=== PATIENT | female | born 1930 | race African-American/Black ===

== ENCOUNTER 2018-06-02 19:30 | Inpatient (IN) | payer SELFPAY ==
[2018-06-02 19:39] VITALS: BMI 25.7
--- NOTE | 2018-06-02 20:04 | PDOC ---
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 Past History - Past Medical History Allergies/Adverse Reactions: Allergies Allergy/AdvReac Type Severity Reaction Status Date / Time Penicillins Allergy Severe Swelling Verified 06/02/18 19:40 aspirin Allergy Mild Hives Verified 06/02/18 19:40 COPD: No HTN: Yes - Suicide/Smoking/Psychosocial Hx Smoking History: Never smoked Have you smoked in the past 12 months: No Information on smoking cessation initiated: No Hx Alcohol Use: No Drug/Substance Use Hx: No Substance Use Type: None Review of Systems - Review of Systems Able to Perform ROS?: Yes Constitutional: Yes: Chills, Fever, Malaise, Weakness. No: Unexplained wgt Loss HEENTM: No: Nose Congestion, Throat Pain Respiratory: No: Cough, Shortness of Breath Cardiac (ROS): No: Chest Pain, Palpitations ABD/GI: No: Constipated, Diarrhea, Nausea, Vomiting : No: Burning, Dysuria Musculoskeletal: No: Back Pain, Neck Pain Integumentary: No: Bruising, Rash Neurological: No: Headache, Numbness, Tingling, Weakness, Dizziness Endocrine: No: Unexplained Weight Gain, Unexplained Weight Loss *Physical Exam - Vital Signs Last Vital Signs Temp Pulse Resp BP Pulse Ox 101.3 F H 88 22 123/112 100 06/02/18 19:36 06/02/18 19:36 06/02/18 19:36 06/02/18 19:36 06/02/18 19:36 - Physical Exam General Appearance: Yes: Nourished, Appropriately Dressed, Other (pleasant elderly [place]-speaking female who appears comfortable, occasional wet cough, no overt respiratory or other distress, answering questions appropriately, accompanied by family at bedside). No: Apparent Distress HEENT: positive: EOMI, RENETTA, Normal Voice, Hearing Grossly Normal. negative: Scleral Icterus (R), Scleral Icterus (L), Nasal Congestion Neck: positive: Trachea midline, Supple. negative: Tender, Rigid Respiratory/Chest: positive: Crackles. negative: Respiratory Distress, Rhonchi , Stridor, Wheezing Cardiovascular: positive: Regular Rhythm, Regular Rate, Murmur (2/6 systolic). negative: Edema Gastrointestinal/Abdominal: positive: Normal Bowel Sounds, Soft. negative: Tender, Organomegaly, Pulsatile Mass, Guarding Musculoskeletal: positive: Normal Inspection. negative: Decreased Range of Motion, Vertebral Tenderness Extremity: positive: Normal Capillary Refill, Normal Inspection, Normal Range of Motion. negative: Tender, Cyanosis Integumentary: positive: Normal Color, Dry, Warm. 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 negative: Confused, Disoriented Heart Score/ECG Review #1 06/02/18 22:44 NSR rate 73 with normal axis and intervals and no ischemic changes ED Treatment Course - LABORATORY CBC & Chemistry Diagram: 06/02/18 21:00 06/02/18 21:00 Medical Decision Making - Medical Decision Making 06/02/18 20:24 Pt p/w SOB, cough, chest discomfort, and fever. Initial Vital Signs Temp Pulse Resp BP Pulse Ox 101.3 F H 88 22 123/112 100 06/02/18 19:36 06/02/18 19:36 06/02/18 19:36 06/02/18 19:36 06/02/18 19:36 Exam: As noted in Physical Exam section. DDX IBNLT: CHF, PNA, bronchitis, COPD, asthma, other lung disease, viral URI ( e.g. influenza), laryngitis, tracheitis, etc. W/U ordered: Labs as noted below EKG CXR TX ordered: [facility] EKG: Reviewed; results as noted in ECG Review section. CXR: Nothing acute Laboratory Tests 06/02/18 06/02/18 06/02/18 20:55 21:00 21:00 WBC 8.6 RBC 4.04 Hgb 12.8 Hct 37.6 MCV 93.2 MCH 31.6 MCHC 33.9 RDW 13.5 Plt Count 209 MPV 8.3 Absolute Neuts (auto) 6.9 Neutrophils % 80.6 Lymphocytes % 7.4 L Monocytes % 11.1 H Eosinophils % 0.4 Basophils % 0.5 Nucleated RBC % 0 PT with INR 12.10 INR 1.07 PTT (Actin FS) 32.0 VBG pH POC VBG pCO2 POC VBG pO2 Mixed VBG HCO3 Sodium Potassium Chloride Carbon Dioxide Anion Gap BUN Creatinine Creat Clearance w eGFR Random Glucose Lactic Acid Calcium Total Bilirubin AST ALT Alkaline Phosphatase Troponin I B-Natriuretic Peptide 222.70 Total Protein Albumin Urine Color Urine Appearance Urine pH Ur Specific [place] Urine Protein Urine Glucose (UA) Urine Ketones Urine Blood Urine Nitrite Urine Bilirubin Urine Urobilinogen Ur Leukocyte Esterase Urine WBC (Auto) Urine RBC (Auto) Ur Epithelial Cells Urine Bacteria 06/02/18 06/02/18 06/02/18 21:00 21:00 21:00 WBC RBC Hgb Hct MCV MCH MCHC RDW Plt Count MPV Absolute Neuts (auto) Neutrophils % Lymphocytes % Monocytes % Eosinophils % Basophils % Nucleated RBC % PT with INR INR PTT (Actin FS) VBG pH 7.45 H POC VBG pCO2 43.0 POC VBG pO2 36.5 Mixed VBG HCO3 29.4 H Sodium 137 Potassium 3.9 Chloride 98 Carbon Dioxide 29 Anion Gap 10 BUN 23 H Creatinine 1.2 H Creat Clearance w eGFR 42.70 Random Glucose 105 Lactic Acid 0.9 Calcium 8.6 Total Bilirubin 1.8 H AST 21 ALT 20 Alkaline Phosphatase 113 Troponin I B-Natriuretic Peptide Total Protein 7.7 Albumin 3.6 Urine Color Urine Appearance Urine pH Ur Specific [place] Urine Protein Urine Glucose (UA) Urine Ketones Urine Blood Urine Nitrite Urine Bilirubin Urine Urobilinogen Ur Leukocyte Esterase Urine WBC (Auto) Urine RBC (Auto) Ur Epithelial Cells Urine Bacteria 06/02/18 06/02/18 21:00 21:30 WBC RBC Hgb Hct MCV MCH MCHC RDW Plt Count MPV Absolute Neuts (auto) Neutrophils % Lymphocytes % Monocytes % Eosinophils % Basophils % Nucleated RBC % PT with INR INR PTT (Actin FS) VBG pH POC VBG pCO2 POC VBG pO2 Mixed VBG HCO3 Sodium Potassium Chloride Carbon Dioxide Anion Gap BUN Creatinine Creat Clearance w eGFR Random Glucose Lactic Acid Calcium Total Bilirubin AST ALT Alkaline Phosphatase Troponin I < 0.02 B-Natriuretic Peptide Total Protein Albumin Urine Color Straw Urine Appearance Clear Urine pH 7.0 Ur Specific [place] 1.005 Urine Protein Negative Urine Glucose (UA) Negative Urine Ketones Negative Urine Blood 1+ H Urine Nitrite Negative Urine Bilirubin Negative Urine Urobilinogen Negative Ur Leukocyte Esterase 3+ H Urine WBC (Auto) 87 Urine RBC (Auto) 6 Ur Epithelial Cells Rare Urine Bacteria Few Patient has UTI, clinically has PNA even though this is not reflected with evidence on CXR. Reassessment: Patient continues to have frequent wet cough. Generally appears very well otherwise. Repeat vitals wnl. Levaquin 750 mg IVPB ordered as patient has severe PCN allergy with anaphylaxis in the past. CURB-65 score: 2, indicating 9.2% mortality. PNA Severity Index: 125, indicating 9.2% mortality. ADMIT CURB-65 and PSI suggest Pt should be admitted for inpatient management. The Pt is unsafe for discharge at this time. They require further hospital observation, workup, and treatment. Microblog sent to [facility] for admission. Spoke with [facility] (Lorenzo Caldera), in agreement Pt to be admitted to Med/Surg Obs. Decision to Admit order placed to [facility] covering attending Dr. Hopper. 06/02/18 22:44 *DC/Admit/Observation/Transfer Diagnosis at time of Disposition: Generalized weakness Pneumonia Qualifiers: Pneumonia type: due to unspecified organism Laterality: unspecified laterality Lung location: unspecified part of lung Qualified Code(s): J18.9 - Pneumonia, unspecified organism UTI (urinary tract infection) Qualifiers: Urinary tract infection type: acute cystitis Hematuria presence: without hematuria Qualified Code(s): N30.00 - Acute cystitis without hematuria - Discharge Dispostion Condition at time of disposition: Guarded Decision to Admit order: Yes - Referrals - Patient Instructions - Post Discharge Activity
[2018-06-02] MEDS ORDERED: ACETAMINOPHEN 1000 MG/100 ML VIAL (NON FORMULARY) IVPB ONE (20:14)
--- NOTE | 2018-06-02 20:14 | PDOC ---
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 As per patient, she has been experiencing fever, chills, orthopnea, and a productive cough with white phlegm. She reports associated weakness and malaise. She reports 3 days of urinary frequency, and foul smelling urine without dysuria. She reports intermittent diarrhea and constipation. Allergies: Aspirin and penicillins. Social history: Nonsmoker. Denies EtOH use and recreational drug use. - Physicial Exam PE: 06/02/18 23:19 GENERAL: Afebrile. Awake, alert, and fully oriented, in no acute distress HEAD: No signs of trauma EYES: PERRLA, EOMI, sclera anicteric, conjunctiva clear ENT: Auricles normal inspection, hearing grossly normal, nares patent, oropharynx clear without exudates. Moist mucosa NECK: Normal ROM, supple, no lymphadenopathy, JVD, or masses LUNGS: Breath sounds equal, clear to auscultation bilaterally. No wheezes, and no crackles HEART: Regular rate and rhythm, normal S1 and S2, no murmurs, rubs or gallops ABDOMEN: Soft, nontender, normoactive bowel sounds. No guarding, no rebound. No masses EXTREMITIES: Normal range of motion, no edema. No clubbing or cyanosis. No cords, erythema, or tenderness NEUROLOGICAL: Cranial nerves II through XII grossly intact. Normal speech, normal gait SKIN: Warm, Dry, normal turgor, no rashes or lesions noted. <Melanie Engel - Last Filed: 06/02/18 23:18> - Medical Decision Making 06/08/18 01:55 Pt admitted <Isamar Hartmann - Last Filed: 06/08/18 01:55> Heart Score/ECG Review #1 06/02/18 22:54 EKG performed at: 02 June 2018 at 22:41:11 Vent Rate 73 bpm UT interval 198 ms QRS duration 112 ms QT/QTc 396/436 ms P-R-T axes 62 -20 52 No T wave inversions, no ST elevations <Melanie Engel - Last Filed: 06/02/18 23:18> Attestations - Attestations 06/02/18 21:22 Documentation prepared by Melanie Engel, acting as medical equipment sales for Isamar Hartmann MD. <Melanie Engel - Last Filed: 06/02/18 23:18>
[2018-06-02 21:08] LABS: BASO % 0.5 % (0-2.0); EOS % 0.4 % (0-4.5); HEMATOCRIT 37.6 % (32.4-45.2); HEMOGLOBIN 12.8 GM/dL (10.7-15.3); LYMPH % 7.4 % (8-40); MCH 31.6 pg (25.7-33.7); MCHC 33.9 g/dl (32.0-36.0); MEAN CELL VOLUME 93.2 fl (80-96); MEAN PLT VOLUME 8.3 fl (7.5-11.1); MONO % 11.1 % (3.8-10.2); NEUT % 80.6 % (42.8-82.8); PLATELET COUNT 209 K/MM3 (134-434); RBC 4.04 M/mm3 (3.60-5.2); RDW 13.5 % (11.6-15.6); WHITE BLOOD COUNT 8.6 K/mm3 (4.0-10.0)
[2018-06-02 21:12] LABS: VENOUS PH 7.45 (7.32-7.42); VENOUS PO2 36.5 mmHg (28-48)
[2018-06-02 21:33] LABS: ALBUMIN 3.6 g/dl (3.4-5.0); ALK PHOS 113 U/L (45-117); ANION GAP 10 (8-16); BILIRUBIN,TOTAL 1.8 mg/dL (0.2-1.0); BLOOD UREA NITROGEN 23 mg/dL (7-18); CALCIUM 8.6 mg/dL (8.5-10.1); CHLORIDE 98 mmol/L (98-107); CO2 29 mmol/L (21-32); CREATININE 1.2 mg/dL (0.55-1.02); GLUCOSE,RANDOM 105 mg/dL (74-106); POTASSIUM 3.9 mmol/L (3.5-5.1); SGOT/AST 21 U/L (15-37); SGPT/ALT 20 U/L (12-78); SODIUM 137 mmol/L (136-145); TOT PROT 7.7 g/dl (6.4-8.2)
[2018-06-02 21:35] LABS: INR 1.07 (0.82-1.09); PROTHROMBIN TIME (PATIENT) 12.1 SEC (9.7-13.0)
[2018-06-02 21:40] LABS: URINE APPEARANCE CLEAR; URINE BILIRUBIN NEGATIVE (<2.0 mg/dL); URINE COLOR STRAW; URINE GLUCOSE (UA) NEGATIVE (NEGATIVE); URINE KETONE NEGATIVE (NEGATIVE); URINE NITRITE NEGATIVE (NEGATIVE); URINE PROTEIN NEGATIVE (NEGATIVE); URINE UROBILINOGEN NEGATIVE mg/dL (0.2-1.0)
[2018-06-02 21:57] LABS: URINE LEUK ESTERASE 3+ (NEGATIVE)
[2018-06-02 21:59] LABS: EPI CELLS RARE /HPF (FEW); URINE BACTERIA FEW /hpf (NONE SEEN)
[2018-06-02] MEDS ORDERED: DOXYCYCLINE INJECTION 100 MG in DEXTROSE 5%-WATER - 100 ML IVPB ONE (22:10)
[2018-06-02] MEDS ORDERED: DOXYCYCLINE HYCLATE 100 MG VIAL ONE (23:14)
--- NOTE | 2018-06-03 00:11 | PN ---
Teaching Attending Note Name of Resident: Naun Hernandez ATTENDING PHYSICIAN STATEMENT I saw and evaluated the patient. I reviewed the resident's note and discussed the case with the resident. I agree with the resident's findings and plan as documented. 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 She presents to the ER complaints of fever, chills , orthopnea, and a productive cough with white phlegm for 2 days. She reports associated weakness and malaise. She reports 3 days of urinary frequency, and foul smelling urine without dysuria. She reports intermittent diarrhea and constipation. OBJECTIVE: Alert and in no acute distress Vital Signs Period Temp Pulse Resp BP Sys/Valdovinos Pulse Ox Last 24 Hr 101.3 F 88 22 123/112 100 HEENT: No Jaundice, eye redness or discharge, PERRLA, EOMI. Normocephalic, atraumatic. External ears are normal and hearing is grossly intact. No nasal discharge. Neck: Supple, nontender. No palpable adenopathy or thyromegaly. No JVD Chest: Good effort. Clear to auscultation and percussion. Heart: Regular. No S3, rub or murmur Abdomen: Not distended, soft, nontender and no HSM. No rebound or guarding. Normoactive bowel sounds. Ext: Peripheral pulses intact. No leg edema. Skin: Warm and dry. No petechiae, rash or ecchymosis. Neuro: Alert. Oriented x3. CN 2-12 grossly intact. Sensation grossly intact in all four extremities and DTR are symmetric. Abnormal Lab Results 06/02/18 06/02/18 06/02/18 21:00 21:00 21:00 Lymphocytes % 7.4 L Monocytes % 11.1 H VBG pH 7.45 H Mixed VBG HCO3 29.4 H BUN 23 H Creatinine 1.2 H Total Bilirubin 1.8 H Urine Blood Ur Leukocyte Esterase 06/02/18 21:30 Lymphocytes % Monocytes % VBG pH Mixed VBG HCO3 BUN Creatinine Total Bilirubin Urine Blood 1+ H Ur Leukocyte Esterase 3+ H ASSESSMENT AND PLAN: 1. UTI - Allergic to penicillin. Will treat with Levofloxacin 250 mg IV q 24 hours. Patient has significant pulmonary symptoms but no significant infiltrate on CXR (RLL and RML?). Will get a chest CT scan. May have atypical pneumonia which will also be covered by levofloxacin. Will trend unexplained elevated bilirubin and repeat LFTs tomorrow. 2. AIDAN - Dehydration due to poor intake is likely culprit. Will hydrate her gently with IV fluids and encourage liberal oral fluids. Trend BUN/Cr and avoid nephrotoxic agents such as NSAIDS, aminoglycosides, contrast dyes and certain alternative medicine products. 3. DVT prophylaxis - Heparin 5000u sq tid. 4. Advance directives - Full code
[2018-06-03] MEDS ORDERED: ACETAMINOPHEN 325 MG TABLET (FP) PO PRN (02:15)
[2018-06-03] MEDS: SODIUM CHLORIDE 1,000 ML IV SCH ×2 (02:52→20:03)
[2018-06-03] MEDS: HEPARIN NA (PORCINE) 5,000 UNITS/ML 1ML VIAL SQ SCH ×3 (02:52→18:30)
[2018-06-03] MEDS ORDERED: HEPARIN NA (PORCINE) 5,000 UNITS/ML 1ML VIAL ONE (03:09)
[2018-06-03 06:45] LABS: BASO % 0.2 % (0-2.0); EOS % 0.6 % (0-4.5); HEMATOCRIT 35.6 % (32.4-45.2); HEMOGLOBIN 12.2 GM/dL (10.7-15.3); MCHC 34.2 g/dl (32.0-36.0); MEAN CELL VOLUME 93.4 fl (80-96); MEAN PLT VOLUME 8.3 fl (7.5-11.1); MONO % 14.5 % (3.8-10.2); NEUT % 74.7 % (42.8-82.8); PLATELET COUNT 201 K/MM3 (134-434); RBC 3.81 M/mm3 (3.60-5.2); RDW 13.7 % (11.6-15.6); WHITE BLOOD COUNT 8.4 K/mm3 (4.0-10.0)
[2018-06-03 06:55] LABS: INR 1.22 (0.82-1.09); PROTHROMBIN TIME (PATIENT) 13.8 SEC (9.7-13.0)
[2018-06-03 06:58] LABS: ACTIVATED PTT 30.9 SECONDS (25.2-36.5)
[2018-06-03 07:05] LABS: ALBUMIN 3.1 g/dl (3.4-5.0); ANION GAP 5 (8-16); BLOOD UREA NITROGEN 19 mg/dL (7-18); CALCIUM 8.7 mg/dL (8.5-10.1); CHLORIDE 100 mmol/L (98-107); CO2 32 mmol/L (21-32); CREATININE 1.1 mg/dL (0.55-1.02); GLUCOSE,RANDOM 90 mg/dL (74-106); POTASSIUM 3.6 mmol/L (3.5-5.1); SGOT/AST 20 U/L (15-37); SGPT/ALT 19 U/L (12-78); SODIUM 137 mmol/L (136-145)
[2018-06-03 07:08] LABS: ALK PHOS 109 U/L (45-117); BILIRUBIN,TOTAL 1.7 mg/dL (0.2-1.0)
--- NOTE | 2018-06-03 08:03 | HP ---
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 She reports 3 days of urinary frequency, and foul smelling urine without dysuria. Pt is visitiing family in the [facility] for the month from [facility]. Going back next week Denies CP, abd pain, n/v/d, hematuria, dysuria, stool in blood, recent sick contacts ER course was notable for: (1)levaquin, doxy, Tylenol (2) (3) Recent Travel: PAST MEDICAL HISTORY: PAST SURGICAL HISTORY: appendectomy cholec fibroid Social History: Smoking: denies Alcohol:denies Drugs: denies Family History: mom HTN Allergies Penicillins Allergy (Severe, Verified 06/03/18 03:24) Swelling aspirin Allergy (Mild, Verified 06/03/18 03:24) Hives HOME MEDICATIONS: Amlodipine 10mg qd HCTZ 25mg qd clonixinato 10-125 (icelandic) needs to be confirmed diprofolina 500? 250? (icelandic)needs to be confirmed Home Medications Medication Instructions Recorded NK [No Known Home Medication] 06/03/18 REVIEW OF SYSTEMS reviewed in HPI PHYSICAL EXAMINATION Vital Signs - 24 hr 06/02/18 06/03/18 19:36 03:27 Temperature 101.3 F H 98.5 F Pulse Rate 88 70 Pulse Rate [ 70 Left Radial] Respiratory 22 16 Rate Blood Pressure 123/112 Blood Pressure 121/68 [Right Arm] O2 Sat by Pulse 100 95 Oximetry (%) GENERAL: Awake, alert, and fully oriented, in no acute distress. HEAD: Normal with no signs of trauma. EYES: Pupils equal, round and reactive to light, extraocular movements intact, sclera anicteric, conjunctiva clear. No lid lag. EARS, NOSE, THROAT: Ears normal, nares patent, oropharynx clear without exudates. Moist mucous membranes. NECK: Normal range of motion, supple without lymphadenopathy, JVD, or masses. LUNGS: B/L crackles HEART: Regular rate and rhythm, normal S1 and S2 without murmur, rub or gallop. ABDOMEN: Soft, nontender, not distended, normoactive bowel sounds, no guarding, no rebound, no masses. No hepatomegaly or splenomegaly. MUSCULOSKELETAL: Normal range of motion at all joints. No bony deformities or tenderness. No CVA tenderness. UPPER EXTREMITIES: 2+ pulses, warm, well-perfused. No cyanosis. No clubbing. No peripheral edema. LOWER EXTREMITIES: 2+ pulses, warm, well-perfused. No calf tenderness. No peripheral edema. NEUROLOGICAL: Cranial nerves II-XII intact. Normal speech. SKIN: Warm, dry, normal turgor, no rashes or lesions noted, normal capillary refill. Laboratory Results - last 24 hr 06/02/18 06/02/18 06/02/18 20:55 21:00 21:00 WBC 8.6 RBC 4.04 Hgb 12.8 Hct 37.6 MCV 93.2 MCH 31.6 MCHC 33.9 RDW 13.5 Plt Count 209 MPV 8.3 Absolute Neuts (auto) 6.9 Neutrophils % 80.6 Lymphocytes % 7.4 L Monocytes % 11.1 H Eosinophils % 0.4 Basophils % 0.5 Nucleated RBC % 0 PT with INR 12.10 INR 1.07 PTT (Actin FS) 32.0 VBG pH POC VBG pCO2 POC VBG pO2 Mixed VBG HCO3 Sodium Potassium Chloride Carbon Dioxide Anion Gap BUN Creatinine Creat Clearance w eGFR Random Glucose Lactic Acid Calcium Total Bilirubin AST ALT Alkaline Phosphatase Troponin I B-Natriuretic Peptide 222.70 Total Protein Albumin Urine Color Urine Appearance Urine pH Ur Specific [place] Urine Protein Urine Glucose (UA) Urine Ketones Urine Blood Urine Nitrite Urine Bilirubin Urine Urobilinogen Ur Leukocyte Esterase Urine WBC (Auto) Urine RBC (Auto) Ur Epithelial Cells Urine Bacteria 06/02/18 06/02/18 06/02/18 21:00 21:00 21:00 WBC RBC Hgb Hct MCV MCH MCHC RDW Plt Count MPV Absolute Neuts (auto) Neutrophils % Lymphocytes % Monocytes % Eosinophils % Basophils % Nucleated RBC % PT with INR INR PTT (Actin FS) VBG pH 7.45 H POC VBG pCO2 43.0 POC VBG pO2 36.5 Mixed VBG HCO3 29.4 H Sodium 137 Potassium 3.9 Chloride 98 Carbon Dioxide 29 Anion Gap 10 BUN 23 H Creatinine 1.2 H Creat Clearance w eGFR 42.70 Random Glucose 105 Lactic Acid 0.9 Calcium 8.6 Total Bilirubin 1.8 H AST 21 ALT 20 Alkaline Phosphatase 113 Troponin I B-Natriuretic Peptide Total Protein 7.7 Albumin 3.6 Urine Color Urine Appearance Urine pH Ur Specific [place] Urine Protein Urine Glucose (UA) Urine Ketones Urine Blood Urine Nitrite Urine Bilirubin Urine Urobilinogen Ur Leukocyte Esterase Urine WBC (Auto) Urine RBC (Auto) Ur Epithelial Cells Urine Bacteria 06/02/18 06/02/18 06/03/18 21:00 21:30 06:21 WBC 8.4 RBC 3.81 Hgb 12.2 Hct 35.6 MCV 93.4 MCH 32.0 MCHC 34.2 RDW 13.7 Plt Count 201 MPV 8.3 Absolute Neuts (auto) 6.2 Neutrophils % 74.7 Lymphocytes % 10.0 D Monocytes % 14.5 H Eosinophils % 0.6 Basophils % 0.2 Nucleated RBC % 0 PT with INR INR PTT (Actin FS) VBG pH POC VBG pCO2 POC VBG pO2 Mixed VBG HCO3 Sodium Potassium Chloride Carbon Dioxide Anion Gap BUN Creatinine Creat Clearance w eGFR Random Glucose Lactic Acid Calcium Total Bilirubin AST ALT Alkaline Phosphatase Troponin I < 0.02 B-Natriuretic Peptide Total Protein Albumin Urine Color Straw Urine Appearance Clear Urine pH 7.0 Ur Specific [place] 1.005 Urine Protein Negative Urine Glucose (UA) Negative Urine Ketones Negative Urine Blood 1+ H Urine Nitrite Negative Urine Bilirubin Negative Urine Urobilinogen Negative Ur Leukocyte Esterase 3+ H Urine WBC (Auto) 87 Urine RBC (Auto) 6 Ur Epithelial Cells Rare Urine Bacteria Few 06/03/18 06/03/18 06:21 06:21 WBC RBC Hgb Hct MCV MCH MCHC RDW Plt Count MPV Absolute Neuts (auto) Neutrophils % Lymphocytes % Monocytes % Eosinophils % Basophils % Nucleated RBC % PT with INR 13.80 H INR 1.22 H PTT (Actin FS) 30.9 VBG pH POC VBG pCO2 POC VBG pO2 Mixed VBG HCO3 Sodium 137 Potassium 3.6 Chloride 100 Carbon Dioxide 32 Anion Gap 5 L BUN 19 H Creatinine 1.1 H Creat Clearance w eGFR 47.21 Random Glucose 90 Lactic Acid Calcium 8.7 Total Bilirubin 1.7 H AST 20 ALT 19 Alkaline Phosphatase 109 Troponin I B-Natriuretic Peptide Total Protein 7.0 Albumin 3.1 L Urine Color Urine Appearance Urine pH Ur Specific [place] Urine Protein Urine Glucose (UA) Urine Ketones Urine Blood Urine Nitrite Urine Bilirubin Urine Urobilinogen Ur Leukocyte Esterase Urine WBC (Auto) Urine RBC (Auto) Ur Epithelial Cells Urine Bacteria ASSESSMENT/PLAN: 87 YO F with h/o asthma, 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 Also having 3 days of urinary frequency, and foul smelling urine without dysuria, found to have UTI on UA UTI - Allergic to penicillin. Will treat with Levofloxacin 250 mg IV q 24 hours. Patient has significant pulmonary symptoms but no significant infiltrate on CXR (RLL and RML?). Will get a chest CT scan. May have atypical pneumonia which will also be covered by levofloxacin. Will trend unexplained elevated bilirubin and repeat LFTs today. -ID consult PNA? - significant pulmonary symptoms but no significant infiltrate on CXR (RLL and RML?). Will get a chest CT scan. May have atypical pneumonia which will also be covered by levofloxacin AIDAN - Dehydration due to poor intake is likely culprit. Will hydrate her gently with IV fluids and encourage liberal oral fluids. Trend BUN/Cr and avoid nephrotoxic agents such as NSAIDS, aminoglycosides, contrast dyes and certain alternative medicine products. -Renal u/s r/o obstruction -if aidan does not improve w/ fluids consider renal consult for possible CKD (we dont have Cr baseline) HCM -c/w other home dose meds clonixinato 10-125 (icelandic) needs to be confirmed diprofolina 500? 250? (icelandic)needs to be confirmed #FEN -IV NS 50cc/hr -replete lytes as needed -low sodium diet #DVTppx SQH 5000U tid #Dispo -admit to meds surg -Full code Visit type - Emergency Visit Emergency Visit: Yes ED Registration Date: 06/03/18 Care time: The patient presented to the Emergency Department on the above date and was hospitalized for further evaluation of their emergent condition. - New Patient This patient is new to me today: Yes Date on this admission: 06/03/18 - Critical Care Critical Care patient: No Hospitalist Screening - Colonoscopy Questionnaire Colonoscopy Questionnaire: Colonoscopy Questionnaire - Patient: 50 - 75 years old and never had a screening colonoscopy: Unknown History of colon or rectal polyps, or CA: Unknown History of IBD, Crohn's disease or UC: Unknown History of abdominal radiation therapy as a child: Unknown - Relative: 1 with colon or rectal CA, or polyps at age 60 or younger: Unknown Colon or rectal CA diagnosed at age 45 or younger: Unknown Multiple relatives with colon or rectal CA: Unknown - Outcome: Screening Result: Negative Screen
[2018-06-03] MEDS: amLODIPine BESYLATE 10 MG TABLET (FP) PO SCH (10:13)
[2018-06-03] MEDS: HYDROCHLOROTHIAZIDE 25 MG TABLET (FP) PO SCH (10:13)
--- NOTE | 2018-06-03 11:32 | EKG ---
Test Reason : Blood Pressure : / mmHG Vent. Rate : 073 BPM Atrial Rate : 073 BPM P-R Int : 198 ms QRS Dur : 112 ms QT Int : 396 ms P-R-T Axes : 062 -20 052 degrees QTc Int : 436 ms NORMAL SINUS RHYTHM NORMAL ECG NO PREVIOUS ECGS AVAILABLE Confirmed by MARLO GILL, SYLVIA ([id number]) on 06/03/2018 11:32:22 AM Referred By: Confirmed By:SYLVIA SELLERS MD
--- NOTE | 2018-06-03 11:54 | PN ---
Physical Exam: SUBJECTIVE: Patient is a 87 y/o female with history of asthma, COPD, CAD, uterine prolapse, and HTN who presents with UTI. Patient reports increased urinary frequency. Denies back pain or dysuria. Patient reports headache. OBJECTIVE: Vital Signs Period Temp Pulse Resp BP Sys/Valdovinos Pulse Ox Last 24 Hr 98.4 F-101.3 F 70-88 16-22 121-123/65-112 95-100 GENERAL: The patient is awake, alert, and fully oriented, in no acute distress. LUNGS: Breath sounds equal, clear to auscultation bilaterally HEART: Regular rate and rhythm, S1, S2 ABDOMEN: Soft, nontender, nondistended, normoactive bowel sounds, no guarding, negative CVA tenderness EXTREMITIES: 2+ pulses, warm, well-perfused, no edema. R knee swollen SKIN: Warm, dry, normal turgor, no rashes or lesions noted Laboratory Results - last 24 hr 06/02/18 06/02/18 06/02/18 20:55 21:00 21:00 WBC 8.6 RBC 4.04 Hgb 12.8 Hct 37.6 MCV 93.2 MCH 31.6 MCHC 33.9 RDW 13.5 Plt Count 209 MPV 8.3 Absolute Neuts (auto) 6.9 Neutrophils % 80.6 Lymphocytes % 7.4 L Monocytes % 11.1 H Eosinophils % 0.4 Basophils % 0.5 Nucleated RBC % 0 PT with INR 12.10 INR 1.07 PTT (Actin FS) 32.0 VBG pH POC VBG pCO2 POC VBG pO2 Mixed VBG HCO3 Sodium Potassium Chloride Carbon Dioxide Anion Gap BUN Creatinine Creat Clearance w eGFR Random Glucose Lactic Acid Calcium Total Bilirubin AST ALT Alkaline Phosphatase Troponin I B-Natriuretic Peptide 222.70 Total Protein Albumin Urine Color Urine Appearance Urine pH Ur Specific [place] Urine Protein Urine Glucose (UA) Urine Ketones Urine Blood Urine Nitrite Urine Bilirubin Urine Urobilinogen Ur Leukocyte Esterase Urine WBC (Auto) Urine RBC (Auto) Ur Epithelial Cells Urine Bacteria 06/02/18 06/02/18 06/02/18 21:00 21:00 21:00 WBC RBC Hgb Hct MCV MCH MCHC RDW Plt Count MPV Absolute Neuts (auto) Neutrophils % Lymphocytes % Monocytes % Eosinophils % Basophils % Nucleated RBC % PT with INR INR PTT (Actin FS) VBG pH 7.45 H POC VBG pCO2 43.0 POC VBG pO2 36.5 Mixed VBG HCO3 29.4 H Sodium 137 Potassium 3.9 Chloride 98 Carbon Dioxide 29 Anion Gap 10 BUN 23 H Creatinine 1.2 H Creat Clearance w eGFR 42.70 Random Glucose 105 Lactic Acid 0.9 Calcium 8.6 Total Bilirubin 1.8 H AST 21 ALT 20 Alkaline Phosphatase 113 Troponin I B-Natriuretic Peptide Total Protein 7.7 Albumin 3.6 Urine Color Urine Appearance Urine pH Ur Specific [place] Urine Protein Urine Glucose (UA) Urine Ketones Urine Blood Urine Nitrite Urine Bilirubin Urine Urobilinogen Ur Leukocyte Esterase Urine WBC (Auto) Urine RBC (Auto) Ur Epithelial Cells Urine Bacteria 06/02/18 06/02/18 06/03/18 21:00 21:30 06:21 WBC 8.4 RBC 3.81 Hgb 12.2 Hct 35.6 MCV 93.4 MCH 32.0 MCHC 34.2 RDW 13.7 Plt Count 201 MPV 8.3 Absolute Neuts (auto) 6.2 Neutrophils % 74.7 Lymphocytes % 10.0 D Monocytes % 14.5 H Eosinophils % 0.6 Basophils % 0.2 Nucleated RBC % 0 PT with INR INR PTT (Actin FS) VBG pH POC VBG pCO2 POC VBG pO2 Mixed VBG HCO3 Sodium Potassium Chloride Carbon Dioxide Anion Gap BUN Creatinine Creat Clearance w eGFR Random Glucose Lactic Acid Calcium Total Bilirubin AST ALT Alkaline Phosphatase Troponin I < 0.02 B-Natriuretic Peptide Total Protein Albumin Urine Color Straw Urine Appearance Clear Urine pH 7.0 Ur Specific [place] 1.005 Urine Protein Negative Urine Glucose (UA) Negative Urine Ketones Negative Urine Blood 1+ H Urine Nitrite Negative Urine Bilirubin Negative Urine Urobilinogen Negative Ur Leukocyte Esterase 3+ H Urine WBC (Auto) 87 Urine RBC (Auto) 6 Ur Epithelial Cells Rare Urine Bacteria Few 06/03/18 06/03/18 06:21 06:21 WBC RBC Hgb Hct MCV MCH MCHC RDW Plt Count MPV Absolute Neuts (auto) Neutrophils % Lymphocytes % Monocytes % Eosinophils % Basophils % Nucleated RBC % PT with INR 13.80 H INR 1.22 H PTT (Actin FS) 30.9 VBG pH POC VBG pCO2 POC VBG pO2 Mixed VBG HCO3 Sodium 137 Potassium 3.6 Chloride 100 Carbon Dioxide 32 Anion Gap 5 L BUN 19 H Creatinine 1.1 H Creat Clearance w eGFR 47.21 Random Glucose 90 Lactic Acid Calcium 8.7 Total Bilirubin 1.7 H AST 20 ALT 19 Alkaline Phosphatase 109 Troponin I B-Natriuretic Peptide Total Protein 7.0 Albumin 3.1 L Urine Color Urine Appearance Urine pH Ur Specific [place] Urine Protein Urine Glucose (UA) Urine Ketones Urine Blood Urine Nitrite Urine Bilirubin Urine Urobilinogen Ur Leukocyte Esterase Urine WBC (Auto) Urine RBC (Auto) Ur Epithelial Cells Urine Bacteria Active Medications Generic Name Dose Route Start Last Admin Trade Name Freq PRN Reason Stop Dose Admin Acetaminophen 650 mg 06/03/18 02:15 Tylenol - PO Q4H PRN FEVER Amlodipine Besylate 10 mg 06/03/18 10:00 06/03/18 10:13 Norvasc - PO 10 mg DAILY ANDERS Administration Heparin Sodium (Porcine) 5,000 unit 06/03/18 02:30 06/03/18 10:14 Heparin - SQ 5,000 unit Q8H-IV ANDERS Administration Hydrochlorothiazide 25 mg 06/03/18 10:00 06/03/18 10:13 Hctz - PO 25 mg DAILY ANDERS Administration Sodium Chloride 1,000 mls @ 50 mls/hr 06/03/18 02:15 06/03/18 02:52 Normal Saline - IV 06/04/18 22:14 50 mls/hr ASDIR ANDERS Administration Levofloxacin 250 mg in 50 mls @ 50 mls/hr 06/03/18 22:00 Levaquin 250 Mg Premixed Ivpb - IVPB HS ANDERS Protocol ASSESSMENT/PLAN: Patient is a 87 y/o female with history of asthma, COPD, CAD, uterine prolapse, and HTN who presents with UTI. #UTI - ED: doxycycline, levofloxacin - Levaquin 250 mg - ID consult Dr. Lara - UA 3+ LE, 87 WBC - CrCl: 38 - afebrile currently, Tmax: 101.3 - Blood CX positive- organism pending #AIDAN - continue fluids NS@50 - monitor BUN/Cr #DVT ppx -heparin TID #asthma/COPD -stable Dispo: monitor kidney function tomorrow, f/u blood culture, from [facility] (returning on Sunday) Visit type - Emergency Visit Emergency Visit: Yes ED Registration Date: 06/03/18 Care time: The patient presented to the Emergency Department on the above date and was hospitalized for further evaluation of their emergent condition. - New Patient This patient is new to me today: Yes Date on this admission: 06/03/18 - Critical Care Critical Care patient: No
--- NOTE | 2018-06-03 12:23 | PN ---
Progress Note (short form) - Note Progress Note: ID consult dictated imp/reccd granddaughter at bedside as interpretor 87 year old female admitted from home with cough for one month (reports history of asthma) 2 days of chills visiting from [facility] she just lost her one month ago history of rectovesicular fistula and prolapse reports swelling with penicillin fever ?UTI await chest ct reading continue levaquin given penicillin allergy consider bronchodilators f/u cultures penicillin allergy Problem List - Problems (1) Fever Code(s): R50.9 - FEVER, UNSPECIFIED (2) UTI (urinary tract infection) Code(s): N39.0 - URINARY TRACT INFECTION, SITE NOT SPECIFIED Qualifiers: Urinary tract infection type: acute cystitis Hematuria presence: without hematuria Qualified Code(s): N30.00 - Acute cystitis without hematuria (3) Penicillin allergy Code(s): Z88.0 - ALLERGY STATUS TO PENICILLIN
--- NOTE | 2018-06-03 14:53 | CONS ---
DATE OF CONSULTATION: 06/03/2018 HISTORY OF PRESENT ILLNESS: This is an 87-year-old woman with a past medical history of asthma and hypertension. She came to visit her family from [facility] 1 month ago. 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 The cough has been more persistent than usual. She is visiting because she lost her a month ago and has come here to visit the family. Over the last 48 hours she developed some chills and some fever at home and presented with these complaints. They also noted that she has had generalized weakness. She has a poor appetite and a malodorous urine. She has a past medical history that includes a rectovesical fistula, it is unclear it if has been repaired and a history of uterine prolapse. ALLERGIES: She is allergic to PENICILLIN, which apparently makes her swell up. She has a history of allergy to ASPIRIN. PAST MEDICAL HISTORY: Notable for asthma, COPD, coronary artery disease, and hypertension. PAST SURGICAL HISTORY: Notable for cholecystectomy and appendectomy. She has had uterine fibroids removed; it is unclear what the surgical procedure was. She has a known rectovesical fistula; it is unclear whether it has been repaired, and a history of uterine prolapse. SOCIAL HISTORY: There is no history of any cigarette, alcohol or substance use. 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 REVIEW OF SYSTEMS: She has been weak. She has had some chills and fevers. She has had no nausea or vomiting. She has had no diarrhea. She has had weight loss which her granddaughter who has served as japanese interpreter attributes to the fact she has been taking care of her ailing spouse who . PHYSICAL EXAMINATION: General: She is awake and alert. Vital Signs: T-max was 101.3, currently temperature is 98.4, pulse is 72, blood pressure 123/65, respiratory rate 16, and she is saturating 95%. HEENT: She is normocephalic. Eyes are anicteric Neck: Supple. Lungs: Have scattered rhonchi. Heart: Regular rate and rhythm. Abdomen: Soft, nontender. She has no CVA or suprapubic tenderness. She has evidence of prolapse. Extremities: Without edema. LABORATORY DATA: White count is 8.4, hemoglobin 12.2, and platelets are 201. BUN and creatinine are 19 and 1.1. Bilirubin is 1.7; otherwise LFTs are normal. A urinalysis shows 3+ leukocytes with 87 white cells. In summary, this is an 87-year-old woman with a history of rectovesical fistula and prolapse; it is unclear if this has been repaired with fever and a cough but a clear chest x-ray and a possible UTI with pyuria. We will await the chest CT reading. Will continue Levaquin given her PENICILLIN allergy, this should cover both for urinary tract infection as well as pneumonia. Consider adding bronchodilators with followup of cultures. Further recommendations to follow. JOANIE MEDEL M.D. [id number]
--- NOTE | 2018-06-03 18:59 | PN ---
Teaching Attending Note Name of Resident: Candie Manzo ATTENDING PHYSICIAN STATEMENT I saw and evaluated the patient. I reviewed the resident's note and discussed the case with the resident. I agree with the resident's findings and plan as documented. SUBJECTIVE: Patient has no fever, no shortness of breath, no abdominal pain. OBJECTIVE: Vital Signs Temperature 98.2 F 06/03/18 16:59 Pulse Rate 70 06/03/18 16:59 Respiratory Rate 18 06/03/18 16:59 Blood Pressure 118/86 06/03/18 16:59 O2 Sat by Pulse Oximetry (%) 96 06/03/18 16:44 CBCD WBC 8.4 K/mm3 (4.0-10.0) 06/03/18 06:21 RBC 3.81 M/mm3 (3.60-5.2) 06/03/18 06:21 Hgb 12.2 GM/dL (10.7-15.3) 06/03/18 06:21 Hct 35.6 % (32.4-45.2) 06/03/18 06:21 MCV 93.4 fl (80-96) 06/03/18 06:21 MCHC 34.2 g/dl (32.0-36.0) 06/03/18 06:21 RDW 13.7 % (11.6-15.6) 06/03/18 06:21 Plt Count 201 K/MM3 (134-434) 06/03/18 06:21 MPV 8.3 fl (7.5-11.1) 06/03/18 06:21 CMP Sodium 137 mmol/L (136-145) 06/03/18 06:21 Potassium 3.6 mmol/L (3.5-5.1) 06/03/18 06:21 Chloride 100 mmol/L (98-107) 06/03/18 06:21 Carbon Dioxide 32 mmol/L (21-32) 06/03/18 06:21 Anion Gap 5 (8-16) L 06/03/18 06:21 BUN 19 mg/dL (7-18) H 06/03/18 06:21 Creatinine 1.1 mg/dL (0.55-1.02) H 06/03/18 06:21 Creat Clearance w eGFR 47.21 (>60) 06/03/18 06:21 Random Glucose 90 mg/dL (74-106) 06/03/18 06:21 Calcium 8.7 mg/dL (8.5-10.1) 06/03/18 06:21 Total Bilirubin 1.7 mg/dL (0.2-1.0) H 06/03/18 06:21 AST 20 U/L (15-37) 06/03/18 06:21 ALT 19 U/L (12-78) 06/03/18 06:21 Alkaline Phosphatase 109 U/L (45-117) 06/03/18 06:21 Total Protein 7.0 g/dl (6.4-8.2) 06/03/18 06:21 Albumin 3.1 g/dl (3.4-5.0) L 06/03/18 06:21 CARDIAC ENZYMES Troponin I < 0.02 ng/ml (0.00-0.05) 06/02/18 21:00 Current Medications Generic Name Dose Route Start Last Admin Trade Name Freq PRN Reason Stop Dose Admin Acetaminophen 650 mg 06/03/18 02:15 Tylenol - PO Q4H PRN FEVER Amlodipine Besylate 10 mg 06/03/18 10:00 06/03/18 10:13 Norvasc - PO 10 mg DAILY ANDERS Administration Heparin Sodium (Porcine) 5,000 unit 06/03/18 02:30 06/03/18 18:30 Heparin - SQ 5,000 unit Q8H-IV ANDERS Administration Hydrochlorothiazide 25 mg 06/03/18 10:00 06/03/18 10:13 Hctz - PO 25 mg DAILY ANDERS Administration Sodium Chloride 1,000 mls @ 50 mls/hr 06/03/18 02:15 06/03/18 02:52 Normal Saline - IV 06/04/18 22:14 50 mls/hr ASDIR ANDERS Administration Levofloxacin 250 mg in 50 mls @ 50 mls/hr 06/03/18 22:00 Levaquin 250 Mg Premixed Ivpb - IVPB HS ANDERS Protocol Pneumococcal 13-Valent Conj Vacc 0.5 ml 06/03/18 19:00 Prevnar 13 Syringe - IM 06/03/18 19:01 .ONCE ONE Home Medications Medication Instructions Recorded Amlodipine Besylate 10 mg PO DAILY 06/03/18 Eucalyptus/Menthol [Cough Drops] 1 each MM PRN 06/03/18 Hydrochlorothiazide 25 mg PO DAILY 06/03/18 Microbiology PE: per resident's note. 06/02/18 21:00 Blood - Peripheral Venous Blood Culture - Preliminary Pending Organism ASSESSMENT AND PLAN: Patient is a 87 y/o female with history of asthma, COPD, CAD, uterine prolapse, and HTN who presents with UTI. # Acute UTI panculture was send on IV Levaquin, Bld Cx is pending , one set questionable organism is pending. #AIDAN continue IVF #asthma/COPD stable # Uterine prolapse will see her dr in [facility] , travelling this Sunday. #DVT ppx: heparin TID
[2018-06-03] MEDS ORDERED: PNEUMOC 13-VAL CONJ-DIP CRM/PF 0.5 ML DISP.SYRIN IM ONE (19:00)
[2018-06-04] MEDS: HEPARIN NA (PORCINE) 5,000 UNITS/ML 1ML VIAL SQ SCH ×4 (01:59→17:21)
[2018-06-04 06:58] LABS: HEMATOCRIT 34.3 % (32.4-45.2); HEMOGLOBIN 11.6 GM/dL (10.7-15.3); MCH 31.9 pg (25.7-33.7); MCHC 33.9 g/dl (32.0-36.0); MEAN CELL VOLUME 93.9 fl (80-96); MEAN PLT VOLUME 8.5 fl (7.5-11.1); PLATELET COUNT 213 K/MM3 (134-434); RBC 3.66 M/mm3 (3.60-5.2); RDW 13.5 % (11.6-15.6); WHITE BLOOD COUNT 5.3 K/mm3 (4.0-10.0)
[2018-06-04 07:03] LABS: ANION GAP 8 (8-16); BLOOD UREA NITROGEN 15 mg/dL (7-18); CALCIUM 8.9 mg/dL (8.5-10.1); CHLORIDE 106 mmol/L (98-107); CO2 27 mmol/L (21-32); GLUCOSE,RANDOM 81 mg/dL (74-106); POTASSIUM 3.7 mmol/L (3.5-5.1); SODIUM 141 mmol/L (136-145)
[2018-06-04] MEDS: SODIUM CHLORIDE 1,000 ML IV SCH (07:31)
--- NOTE | 2018-06-04 09:44 | PN ---
Progress Note (short form) - Note Progress Note: feels well no abdominal pain Vital Signs Period Temp Pulse Resp BP Sys/Valdovinos Pulse Ox Last 24 Hr 98.1 F-99.2 F 70-79 16-20 113-135/64-86 96-96 cor-rrr lungs clear abd soft,nt ext no edema CBC, BMP 06/04/18 05:55 06/04/18 05:55 Microbiology 06/02/18 21:00 Blood - Peripheral Venous Blood Culture - Preliminary Lactose Fermenting Neg Bacilli 06/02/18 21:30 Urine - Urine Clean Catch Urine Culture - Preliminary Lactose Fermenting Neg Bacilli 06/02/18 21:00 Blood - Peripheral Venous Blood Culture - Preliminary NO GROWTH OBTAINED AFTER 24 HOURS, INCUBATION TO CONTINUE FOR 4 DAYS. a/p fever gram negative bacteremia UTI continue levaquin given penicillin allergy afebrile Problem List - Problems (1) Fever Code(s): R50.9 - FEVER, UNSPECIFIED (2) UTI (urinary tract infection) Code(s): N39.0 - URINARY TRACT INFECTION, SITE NOT SPECIFIED Qualifiers: Urinary tract infection type: acute cystitis Hematuria presence: without hematuria Qualified Code(s): N30.00 - Acute cystitis without hematuria (3) Penicillin allergy Code(s): Z88.0 - ALLERGY STATUS TO PENICILLIN
[2018-06-04] MEDS: HYDROCHLOROTHIAZIDE 25 MG TABLET (FP) PO SCH (10:55)
[2018-06-04] MEDS: amLODIPine BESYLATE 10 MG TABLET (FP) PO SCH (11:02)
--- NOTE | 2018-06-04 14:05 | PN ---
Physical Exam: SUBJECTIVE: Patient is a 87 y/o female with history of asthma, COPD, CAD, uterine prolapse, and HTN who presents with UTI. Patient denies any recent fevers or pain on urination. No acute events overnight. OBJECTIVE: Vital Signs Period Temp Pulse Resp BP Sys/Valdovinos Pulse Ox Last 24 Hr 97.8 F-99.2 F 64-79 18-20 113-135/64-86 96-98 GENERAL: The patient is awake, alert, and fully oriented, in no acute distress. LUNGS: Breath sounds equal, clear to auscultation bilaterally HEART: Regular rate and rhythm, S1, S2 ABDOMEN: Soft, nontender, nondistended, normoactive bowel sounds, no guarding, negative CVA tenderness EXTREMITIES: 2+ pulses, warm, well-perfused, no edema. R knee swollen SKIN: Warm, dry, normal turgor, no rashes or lesions noted Laboratory Results - last 24 hr 06/04/18 06/04/18 05:55 05:55 WBC 5.3 RBC 3.66 Hgb 11.6 Hct 34.3 MCV 93.9 MCH 31.9 MCHC 33.9 RDW 13.5 Plt Count 213 MPV 8.5 Sodium 141 Potassium 3.7 Chloride 106 Carbon Dioxide 27 Anion Gap 8 BUN 15 Creatinine 1.0 Creat Clearance w eGFR 52.69 Random Glucose 81 Calcium 8.9 Active Medications Generic Name Dose Route Start Last Admin Trade Name Freq PRN Reason Stop Dose Admin Acetaminophen 650 mg 06/03/18 02:15 Tylenol - PO Q4H PRN FEVER Amlodipine Besylate 10 mg 06/03/18 10:00 06/04/18 11:02 Norvasc - PO 10 mg DAILY ANDERS Administration Heparin Sodium (Porcine) 5,000 unit 06/03/18 02:30 06/04/18 11:51 Heparin - SQ 5,000 unit Q8H-IV ANDERS Administration Hydrochlorothiazide 25 mg 06/03/18 10:00 06/04/18 10:55 Hctz - PO 25 mg DAILY ANDERS Administration Sodium Chloride 1,000 mls @ 50 mls/hr 06/03/18 02:15 06/04/18 07:31 Normal Saline - IV 06/04/18 22:14 Not Given ASDIR ANDERS Levofloxacin 250 mg in 50 mls @ 50 mls/hr 06/03/18 22:00 06/03/18 21:03 Levaquin 250 Mg Premixed Ivpb - IVPB 50 mls/hr HS ANDERS Administration Protocol ASSESSMENT/PLAN: Patient is a 87 y/o female with history of asthma, COPD, CAD, uterine prolapse, and HTN who presents with UTI. #UTI - ED: doxycycline, levofloxacin - Levaquin 250 mg (day 2) - ID consult Dr. Lara - UA 3+ LE, 87 WBC - CrCl: 38 - afebrile currently, Tmax: 101.3 - Blood CX and Urine Cx positive- lactose fermenting negative bacilli - F/u final culture results for antibiotic sensitivity #AIDAN - continue fluids NS@50 (2 bags) - monitor BUN/Cr: improved #DVT ppx -heparin TID #asthma/COPD -stable Dispo: monitor kidney function tomorrow, f/u blood culture, from [facility] (returning on Sunday) Visit type - Emergency Visit Emergency Visit: No - New Patient This patient is new to me today: No - Critical Care Critical Care patient: No
--- NOTE | 2018-06-04 14:09 | PN ---
Teaching Attending Note Name of Resident: Candie Manzo ATTENDING PHYSICIAN STATEMENT I saw and evaluated the patient. I reviewed the resident's note and discussed the case with the resident. I agree with the resident's findings and plan as documented. SUBJECTIVE: Patient is comfortable with no acute distress, no shortness of breath, no fever or chills. OBJECTIVE: Vital Signs Temperature 97.8 F 06/04/18 09:00 Pulse Rate 64 06/04/18 09:00 Respiratory Rate 18 06/04/18 09:00 Blood Pressure 122/66 06/04/18 09:00 O2 Sat by Pulse Oximetry (%) 98 06/04/18 09:00 CBCD WBC 5.3 K/mm3 (4.0-10.0) 06/04/18 05:55 RBC 3.66 M/mm3 (3.60-5.2) 06/04/18 05:55 Hgb 11.6 GM/dL (10.7-15.3) 06/04/18 05:55 Hct 34.3 % (32.4-45.2) 06/04/18 05:55 MCV 93.9 fl (80-96) 06/04/18 05:55 MCHC 33.9 g/dl (32.0-36.0) 06/04/18 05:55 RDW 13.5 % (11.6-15.6) 06/04/18 05:55 Plt Count 213 K/MM3 (134-434) 06/04/18 05:55 MPV 8.5 fl (7.5-11.1) 06/04/18 05:55 CMP Sodium 141 mmol/L (136-145) 06/04/18 05:55 Potassium 3.7 mmol/L (3.5-5.1) 06/04/18 05:55 Chloride 106 mmol/L (98-107) 06/04/18 05:55 Carbon Dioxide 27 mmol/L (21-32) 06/04/18 05:55 Anion Gap 8 (8-16) 06/04/18 05:55 BUN 15 mg/dL (7-18) 06/04/18 05:55 Creatinine 1.0 mg/dL (0.55-1.02) 06/04/18 05:55 Creat Clearance w eGFR 52.69 (>60) 06/04/18 05:55 Random Glucose 81 mg/dL (74-106) 06/04/18 05:55 Calcium 8.9 mg/dL (8.5-10.1) 06/04/18 05:55 Total Bilirubin 1.7 mg/dL (0.2-1.0) H 06/03/18 06:21 AST 20 U/L (15-37) 06/03/18 06:21 ALT 19 U/L (12-78) 06/03/18 06:21 Alkaline Phosphatase 109 U/L (45-117) 06/03/18 06:21 Total Protein 7.0 g/dl (6.4-8.2) 06/03/18 06:21 Albumin 3.1 g/dl (3.4-5.0) L 06/03/18 06:21 CARDIAC ENZYMES Troponin I < 0.02 ng/ml (0.00-0.05) 06/02/18 21:00 Current Medications Generic Name Dose Route Start Last Admin Trade Name Freq PRN Reason Stop Dose Admin Acetaminophen 650 mg 06/03/18 02:15 Tylenol - PO Q4H PRN FEVER Amlodipine Besylate 10 mg 06/03/18 10:00 06/04/18 11:02 Norvasc - PO 10 mg DAILY ANDERS Administration Heparin Sodium (Porcine) 5,000 unit 06/03/18 02:30 06/04/18 11:51 Heparin - SQ 5,000 unit Q8H-IV ANDERS Administration Hydrochlorothiazide 25 mg 06/03/18 10:00 06/04/18 10:55 Hctz - PO 25 mg DAILY ANDERS Administration Sodium Chloride 1,000 mls @ 50 mls/hr 06/03/18 02:15 06/04/18 07:31 Normal Saline - IV 06/04/18 22:14 Not Given ASDIR ANDERS Levofloxacin 250 mg in 50 mls @ 50 mls/hr 06/03/18 22:00 06/03/18 21:03 Levaquin 250 Mg Premixed Ivpb - IVPB 50 mls/hr HS ANDERS Administration Protocol Home Medications Medication Instructions Recorded Amlodipine Besylate 10 mg PO DAILY 06/03/18 Eucalyptus/Menthol [Cough Drops] 1 each MM PRN 06/03/18 Hydrochlorothiazide 25 mg PO DAILY 06/03/18 PE: no tenderness in all quadrants Rest of PE: per resident's note Microbiology 06/02/18 21:00 Blood - Peripheral Venous Blood Culture - Preliminary Lactose Fermenting Neg Bacilli 06/02/18 21:30 Urine - Urine Clean Catch Urine Culture - Preliminary Lactose Fermenting Neg Bacilli 06/02/18 21:00 Blood - Peripheral Venous Blood Culture - Preliminary NO GROWTH OBTAINED AFTER 24 HOURS, INCUBATION TO CONTINUE FOR 4 DAYS. ASSESSMENT AND PLAN: Patient is a 87 y/o female with history of asthma, COPD, CAD, uterine prolapse, and HTN who presents with UTI. # Gram negative bacteremia , culture is pending. patient on IV antibiotics will wait for sensitivity # Acute UTI panculture was send on IV Levaquin #AIDAN continue IVF #asthma/COPD stable # Uterine prolapse will see her dr in [facility] , travelling this Sunday. #DVT ppx: heparin TID
[2018-06-04] MEDS ORDERED: ACETAMINOPHEN 325 MG TABLET (FP) PO PRN (23:30)
[2018-06-05] MEDS: HEPARIN NA (PORCINE) 5,000 UNITS/ML 1ML VIAL SQ SCH ×2 (01:38→10:04)
[2018-06-05] MEDS: amLODIPine BESYLATE 10 MG TABLET (FP) PO SCH (10:04)
[2018-06-05] MEDS: HYDROCHLOROTHIAZIDE 25 MG TABLET (FP) PO SCH (10:04)
--- NOTE | 2018-06-05 11:20 | PN ---
Progress Note (short form) - Note Progress Note: feels well no abdominal pain slept well, less cough leaving for [place] this weekend daughter at bedside Vital Signs Period Temp Pulse Resp BP Sys/Valdovinos Pulse Ox Last 24 Hr 97.3 F-98.5 F 63-72 18-18 116-132/60-68 cor-rrr lungs clear abd soft,nt ext no edema CBC, BMP 06/04/18 05:55 06/04/18 05:55 Microbiology 06/02/18 21:30 Urine - Urine Clean Catch Urine Culture - Final Escherichia Coli 06/02/18 21:00 Blood - Peripheral Venous Blood Culture - Final Escherichia Coli 06/02/18 21:00 Blood - Peripheral Venous Blood Culture - Preliminary NO GROWTH OBTAINED AFTER 48 HOURS, INCUBATION TO CONTINUE FOR 3 DAYS. a/p fever ecoli bacteremia secondary to uti- no hydronephrosis on sonogram, day #4 levaquin- would complete 10 days levaquin- can switch to po antibiotics penicillin allergy please call back if needed Problem List - Problems (1) Fever Code(s): R50.9 - FEVER, UNSPECIFIED (2) UTI (urinary tract infection) Code(s): N39.0 - URINARY TRACT INFECTION, SITE NOT SPECIFIED Qualifiers: Urinary tract infection type: acute cystitis Hematuria presence: without hematuria Qualified Code(s): N30.00 - Acute cystitis without hematuria (3) Penicillin allergy Code(s): Z88.0 - ALLERGY STATUS TO PENICILLIN
[2018-06-05 13:08] VITALS: BP 126/71; PULSE 61; TEMP 97.7
--- NOTE | 2018-06-05 14:05 | PN ---
Teaching Attending Note Name of Resident: Candie Manzo ATTENDING PHYSICIAN STATEMENT I saw and evaluated the patient. I reviewed the resident's note and discussed the case with the resident. I agree with the resident's findings and plan as documented. SUBJECTIVE: no pain, NO fever or chills. OBJECTIVE: NAD CV: RRR, 2/6 SM at base. Lungs: CTAB ext : roberto dorene Abd: sfot, NT, ND , NL BS . A/P : 87 y/o lady with H/o HTN, COPD , and uterine prolapse, who rpesneted with fever and dysuria and was found tohave UTI with bacteremia 1- complicated UTI and bacteremia : sensitivity reviewed. cont po levaquin for 10 more days. recommended f/u with uro US for R renal cyst repeat blood cx to be followed utrine prolapse repair as out pt 2- incidental finding of 4 cm ascending aortic aneurysm. f/u as outp t 3- b/l Lung infiltrates/scarring. likely old. f/u as out pt with repeat imaging 4- AIDAN : resolved dispo : DC home d/w her and her grand daughter
--- NOTE | 2018-06-05 15:39 | DS ---
Physical Exam: SUBJECTIVE: Patient is a 87 y/o female with history of asthma, COPD, CAD, uterine prolapse, and HTN who presents with UTI. Patient denies any recent fevers or pain on urination. No acute events overnight. OBJECTIVE: Vital Signs Period Temp Pulse Resp BP Sys/Valdovinos Pulse Ox Last 24 Hr 97.6 F-98.5 F 58-72 17-18 116-132/60-71 PHYSICAL EXAM GENERAL: The patient is awake, alert, and fully oriented, in no acute distress. LUNGS: Breath sounds equal, clear to auscultation bilaterally HEART: Regular rate and rhythm, S1, S2 ABDOMEN: Soft, nontender, nondistended, normoactive bowel sounds, no guarding, negative CVA tenderness EXTREMITIES: 2+ pulses, warm, well-perfused, no edema. R knee swollen SKIN: Warm, dry, normal turgor, no rashes or lesions noted LABS HOSPITAL COURSE: Date of Admission:06/03/18 Patient is a 87 y/o female with history of asthma, COPD, CAD, uterine prolapse, and HTN who presented with fever, chills, and smelly urine. She was febrile with a temperature of 101.3. A UA was positive for 3+ leukocyte esterase and 87 WBC. She was given Doxycycline and Levofloxacin in the ED. Her treatment was continued with Levofloxacin 250 mg. Her UCX and blood culture grew E.coli. She will continue her treatment of Levaquin 250mg for 10 days as an outpatient. Second blood cultures drawn and will be followed up. Patient afebrile since admission. She had AIDAN at presentation likely 2/2 to sepsis. Patient was given fluids and her AIDAN resolved. Chest Xray: no acute pathology Chest CT : small patchy bilateral upper lobe and right middle lobe opacities thought to be chronic Renal US: no hydronephrosis present, 0.8 cm right upper pole cortical cyst Patient to follow up with nephrology for cyst maintenance. Patient to follow up chest CT to follow bronchiectasis and opacities Patient stable and discharged home grand daughter phone number [phone] Luis Fernando Date of Discharge: 06/05/18 Minutes to complete discharge: 35 Discharge Summary Reason For Visit: PNEUMONIA/UTI WEAKNESS Condition: Improved - Instructions Diet, Activity, Other Instructions: You came to the Emergency Department because you were having fevers and chills. You had a urinary tract infection and an infection in your blood. We gave you antibiotics to help treat your infection. You will need to continue to take Levaquin 250 mg once a day by mouth for 10 days to completely treat your infection. We have drawn a repeat blood culture to make sure that the infection in your blood has been cleared. If the culture is positive, we will contact you with further instructions. You had imaging (CT) of your chest that showed some abnormalities in your lungs. 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 You should follow up in 6 weeks to have a repeat scan done, to look at your lungs and the dilation in your ascending aorta. Imaging (Ultrasound) of your kidneys showed a 0.8 cm right upper pole cortical cyst. You should have a 3 month repeat ultrasound to monitor this cyst. You should continue to take your home medications as prescribed. You should follow up with your primary care physician and your other physicians in [facility] in one week. You should return to the Emergency Department if you have your symptoms return or if you have chest pain, pain with peeing, shortness of breath, or fevers. Espanol: Usted vino al Departamento de Emergencia porque haydee fiebre y escalofros. Tuviste don infeccin del tracto urinario. Le proporcionamos antibiticos para ayudar a tratar barber infeccin. Tendr que seguir tomando Levaquin 250 mg catalina tiempo cada juana william jefry benson para tratar completamente barber infeccin. Le hicieron don imagen (CT) de barber pecho que mostr algunas anormalidades en keya pulmones. Tambin mostr don leve dilatacin de la aorta ascendente con un dimetro de 4 cm. Debe realizar un seguimiento en 6 semanas para realizar don nueva exploracin, para observar keya pulmones y la dilatacin de la aorta ascendente. La imagen (ultrasonido) de keya riones mostr un quiste cortical en el polo superior derecho de 0,8 cm. Debe hacerse don ecografa repetida de 3 meses para controlar jennifer quiste. Debe seguir tomando los medicamentos de barber hogar segn lo recetado. Debe hacer un seguimiento con barber mdico de atencin primaria dentro de don semana. Debe regresar al servicio de urgencias si tiene sntomas reaparecidos o si tiene dolor en el pecho, dolor con orinar, dificultad para respirar o fiebre. Disposition: HOME - Home Medications Comprehensive Discharge Medication List: Ambulatory Orders Amlodipine Besylate 10 mg PO DAILY 06/03/18 Eucalyptus/Menthol [Cough Drops] 1 each MM PRN 06/03/18 Hydrochlorothiazide 25 mg PO DAILY 06/03/18 Levofloxacin [Levaquin] 250 mg PO DAILY #10 tablet 06/05/18 This patient is new to me today: No Emergency Visit: No Critical Care patient: No - Discharge Referral Referred to [facility] No
== END 2018-06-05 15:26 | disposition home or self-care (01) | DRG 720 ==
LOC: JER 19:30 → JERBED 22:35 → OBSVTOIN 06-03 02:14 → J5S 06-03 14:45
PROVIDERS: ADMIT Internal Medicine; ATTEND Internal Medicine
DX: A41.9 Sepsis, unspecified organism (principal); N39.0 Urinary tract infection, site not specified; N17.9 Acute kidney failure, unspecified; Z88.0 Allergy status to penicillin; I25.10 Atherosclerotic heart disease of native coronary artery without angina pectoris; I10 Essential (primary) hypertension; J44.9 Chronic obstructive pulmonary disease, unspecified; J45.909 Unspecified asthma, uncomplicated; E86.0 Dehydration
CPT/HCPCS: 36415; 71045-TC-FY; 71250-TC; 76775-TC; 80048; 80053; 81003; 81015; 82803; 83605; 83880; 84484; 85025; 85027; 85610; 85730; 87040; 87086; 87186; 90670; 93005; 93010; 94010; 99283-25; G0378; J0131; J1644; J7030